=== PATIENT | male | born 1940 | race Caucasian/White ===

== ENCOUNTER 2021-01-12 08:53 | Inpatient (IN) | payer OTHER ==
[2021-01-12] MEDS ORDERED: DIGOXIN 0.25 MG/ML AMP ONE (09:42)
[2021-01-12] MEDS ORDERED: LEVALBUTEROL 1.25 MG/3 ML NEB ONE (09:42)
[2021-01-12] MEDS ORDERED: METHYLPREDNISOLONE 125 MG INJ ONE (09:42)
[2021-01-12] MEDS ORDERED: IPRATROPIUM BROM 0.5MG/2.5ML ONE (09:42)
[2021-01-12] MEDS ORDERED: CEFTRIAXONE 1000 MG/VIAL ONE (09:42)
[2021-01-12] MEDS ORDERED: NA CHLORIDE 0.9% 100 ML ONE (09:42)
[2021-01-12] MEDS ORDERED: FAMOTIDINE 20 MG/2 ML VIAL IV ONE (09:43)
[2021-01-12 09:57] LABS: Arterial Blood Carboxyhemoglob 1.4 % (0-1.5); Blood Gas Oxyhemoglobin 92.4 % (94-97); Blood O2 Saturation 94.6 % (92-98.5)
[2021-01-12 10:15] LABS: Absolute Lymphocytes (CBC) 0.7 K/uL (0.7-4.9); Basophils % 0.5 % (0-1.3); Hematocrit 44.9 % (39.6-49.0); Lymphocytes % 4.4 % (15.3-44.8); MPV 7.5 fL (7.6-11.3)
[2021-01-12 10:22] LABS: Protime INR 1.15
[2021-01-12 10:39] LABS: Albumin 2.9 g/dL (3.4-5.0); Bilirubin Direct 0.4 mg/dL (0-0.2); Bilirubin Total 1.5 mg/dL (0.2-1.0); Magnesium 1.5 mg/dL (1.8-2.4); Potassium 3.8 mmol/L (3.5-5.1); Protein, Total 7.1 g/dL (6.4-8.2); Troponin (Emerg Dept Use Only) 0.02 ng/mL (0.0-0.045)
[2021-01-12] MEDS ORDERED: MAGNESIUM SULFATE 1 gm IVPB 1 GM/100 ML BAG IV ONE (10:44)
--- NOTE | 2021-01-12 10:47 | ER ---
Nurse's Notes [facility] Name: Ubaldo Rivera Age: 80 yrs Sex: Male : 1940 Arrival Date: 01/12/2021 Time: 08:59 Bed 2 Private MD: Diagnosis: Unspecified atrial fibrillation-WITH RVR;Dyspnea;Hypomagnesemia;Morbid (severe) obesity with alveolar hypoventilation;Elevated white blood cell count;UTI/ Urinary tract infection, site not specified Presentation: 01/12 09:03 Chief complaint: EMS states: WOKE UP WITH SOB AND GENERAL WEAKNESS. Coronavirus screen: bp shortness of breath. Ebola Screen: No symptoms or risks identified at this time. Initial Sepsis Screen: Does the patient meet any 2 criteria? HR > 90 bpm. No. Patient's initial sepsis screen is negative. Does the patient have a suspected source of infection? No. Patient's initial sepsis screen is negative. Risk Assessment: Do you want to hurt yourself or someone else? Patient reports no desire to harm self or others. Onset of symptoms was January 12, 2021. Care prior to arrival: IV initiated. 20 GA, hand. 09:03 Method Of Arrival: EMS: [facility] bp 09:03 Acuity: TOÑO 2 bp 09:07 Acuity: TOÑO 2 bp Triage Assessment: 09:15 General: Reports chills for 12-24 hours. General: Appears distressed, uncomfortable, bp ill, obese, Behavior is WOKE UP THIS AM WITH SOB AND GEN WKN. Pain: Denies pain. EENT: No signs and/or symptoms were reported regarding the EENT system. Neuro: Level of Consciousness is awake, alert, obeys commands, Oriented to none. Cardiovascular: Rhythm is atrial fibrillation. Respiratory: Breath sounds with wheezes bilaterally. GI: Abdomen is obese. : No signs and/or symptoms were reported regarding the genitourinary system. Derm: No deficits noted. Musculoskeletal: Reports weakness in GENERALIZED. Historical: - Allergies: 09:13 No Known Allergies; bp - Home Meds: :13 Unable to obtain [Active]; bp - PMHx: 09:13 Hypertensive disorder; Chronic obstructive lung disease; Anxiety; bp - PSHx: 09:13 Coronary artery bypass graft; bp - Immunization history:: Adult Immunizations Last tetanus immunization: Adult Immunizations up to date, . - Social history:: Smoking status: Patient denies any tobacco usage or history of. - Family history:: not pertinent. Screenin:37 Abuse screen: Denies threats or abuse. Denies injuries from another. Nutritional bp screening: No deficits noted. Tuberculosis screening: No symptoms or risk factors identified. Fall Risk None identified. Assessment: 09:15 General: SEE TRIAGE NOTE. bp 11:00 Reassessment: No changes from previously documented assessment. Patient is alert, bp oriented x 3, equal unlabored respirations, skin warm/dry/pink. ADMIT INITIALIZED. 13:00 Reassessment: No changes from previously documented assessment. Patient and/or family bp updated on plan of care and expected duration. Pain level reassessed. 15:00 Reassessment: No changes from previously documented assessment. Patient and/or family bp updated on plan of care and expected duration. Pain level reassessed. ADMIT IN PROCESS. 16:00 Reassessment: PT SEEN SLEEPING WITH SUPPLEMENTAL OXYGEN OFF. PT O2 SAT ON RA 97. PT IN bp NO APPAREANT DISTRESS. WILL CONTINUE CONTINUOUS O2 MONITORING. Vital Signs: 09:03 Pulse Ox 90% on R/A; Weight 149.69 kg; Height 6 ft. 4 in. (193.04 cm); bp 09:33 BP 110 / 61; Pulse 108; Resp 14; Pulse Ox 93% on 2 lpm NC; bp 10:30 BP 117 / 59; Pulse 100; Resp 17; Pulse Ox 94% ; bp 11:30 BP 110 / 67; Pulse 97; Resp 19; Pulse Ox 94% ; bp 12:11 BP 121 / 66; Pulse 97; Resp 17; Pulse Ox 93% on 2 lpm NC; bp 13:38 BP 126 / 64; Pulse 88; Resp 20; Pulse Ox 98% on 2 lpm NC; bp 15:19 BP 135 / 69; Pulse 90; Resp 16; Pulse Ox 94% on 2 lpm NC; bp 16:03 BP 126 / 67; Pulse 82; Resp 17; Pulse Ox 97% on R/A; bp 09:03 Body Mass Index 40.17 (149.69 kg, 193.04 cm) bp ED Course: 08:59 Patient arrived in ED. em1 08:59 Luis Hunt MD is Attending Physician. vicky 09:03 Clifford Ortiz, RN is Primary Nurse. bp 09:07 Triage completed. bp 09:15 Maintain EMS IV. Dressing intact. Good blood return noted. Site clean \T\ dry. Gauge \T\ bp site: 20 GAUGE L HAND. 09:16 Arm band placed on. bp 10:06 Basic Metabolic Panel Sent. bp 10:06 CBC with Diff Sent. bp 10:06 LFT's Sent. bp 10:06 Magnesium Sent. bp 10:06 NT PRO-BNP Sent. bp 10:06 PT-INR Sent. bp 10:06 Troponin (emerg Dept Use Only) Sent. bp 10:07 XRAY Chest (1 view) In Process Unspecified. EDMS 10:42 Saul Aguilera MD is Hospitalizing Provider. vicky 10:42 Hospitalizing Provider role handed off by Saul Aguilera MD vicky 10:42 Shravan Aguilera MD is Hospitalizing Provider. vicky 13:37 Patient has correct armband on for positive identification. Bed in low position. Call bp light in reach. Side rails up X2. Administered Medications: 09:40 Drug: SOLU-Medrol (methylPrednisoLONE) 125 mg Route: IVP; Site: left hand; bp 12:13 Follow up: Response: No adverse reaction bp 09:40 Drug: Xopenex (levalbuterol) 1.25 mg Route: Inhalation; bp 12:13 Follow up: Response: No adverse reaction bp 09:40 Drug: AtroVENT (ipratropium) Aerosol 0.5 mg Route: Inhalation; bp 12:13 Follow up: Response: No adverse reaction bp 09:40 Drug: Pepcid (famotidine) 20 mg Route: IVP; Site: left hand; bp 12:12 Follow up: Response: No adverse reaction bp 09:40 Drug: Digoxin 0.5 mg Route: IVP; Site: left hand; bp 12:12 Follow up: Response: No adverse reaction bp 09:40 Drug: Rocephin (cefTRIAXone) 1 grams Route: IV; Rate: per protocol; Site: left hand; bp 12:12 Follow up: IV Status: Completed infusion; IV Intake: 250ml bp 11:00 Drug: Magnesium Sulfate 1 grams Route: IVPB; Infused Over: 1 hrs; Site: left hand; bp 12:12 Follow up: IV Status: Completed infusion; IV Intake: 250ml bp Intake: 12:12 IV: 250ml; Total: 250ml. bp 12:12 IV: 250ml; Total: 500ml. bp Outcome: 10:46 Decision to Hospitalize by Provider. vicky 23:51 Patient left the ED. lp1 Signatures: Dispatcher [employer] EDLuis Rosenberg MD MD cha Martinez, Eric em1 Gunjan Graham RN RN lp1 Clifford Ortiz RN RN bp Corrections: (The following items were deleted from the chart) 09:21 09:13 PMHx: History of urinary tract infection; bp bp
--- NOTE | 2021-01-12 10:47 | EDPHYS ---
Physician Documentation [facility] Name: Ubaldo Rivera Age: 80 yrs Sex: Male : 1940 Arrival Date: 01/12/2021 Time: 08:59 Bed 2 Private MD: ED Physician Luis Hunt HPI: 01/12 09:20 This 80 yrs old Male presents to ER via EMS with complaints of DYSPNEA, WEAK vicky AND AFIV RVR. 09:20 The patient has shortness of breath at rest, with light activity. Onset: The vicky symptoms/episode began/occurred just prior to arrival. Duration: The symptoms are continuous, and are steadily getting worse. The patient's shortness of breath is aggravated by nothing, is alleviated by rest, sitting up, application of supplemental oxygen. WEAK AT HOME. Associated signs and symptoms: The patient has no apparent associated signs or symptoms. Severity of symptoms: At their worst the symptoms were moderate just prior to arrival, in the emergency department the symptoms have improved mildly. Onset: The symptoms/episode began/occurred. The patient has experienced similar episodes in the past, multiple times. Historical: - Allergies: 09:13 No Known Allergies; bp - Home Meds: 09:13 Unable to obtain [Active]; bp - PMHx: 09:13 Hypertensive disorder; Chronic obstructive lung disease; Anxiety; bp - PSHx: 09:13 Coronary artery bypass graft; bp - Immunization history:: Adult Immunizations Last tetanus immunization: Adult Immunizations up to date, . - Social history:: Smoking status: Patient denies any tobacco usage or history of. - Family history:: not pertinent. ROS: 09:20 Constitutional: Negative for fever, chills, and weight loss, Eyes: Negative for injury, vicky pain, redness, and discharge, ENT: Negative for injury, pain, and discharge, Neck: Negative for injury, pain, and swelling, Back: Negative for injury and pain, : Negative for injury, bleeding, discharge, and swelling, MS/Extremity: Negative for injury and deformity, Skin: Negative for injury, rash, and discoloration, Psych: Negative for depression, anxiety, suicide ideation, homicidal ideation, and hallucinations, Allergy/Immunology: Negative for hives, rash, and allergies, Endocrine: Negative for neck swelling, polydipsia, polyuria, polyphagia, and marked weight changes, Hematologic/Lymphatic: Negative for swollen nodes, abnormal bleeding, and unusual bruising. 09:20 Cardiovascular: Positive for orthopnea, palpitations, Negative for chest pain. 09:20 Respiratory: Positive for shortness of breath, at rest. 09:20 Abdomen/GI: Positive for abdominal distension. Exam: 09:20 Constitutional: This is a well developed, well nourished patient who is awake, alert, vicky and in no acute distress. Head/Face: Normocephalic, atraumatic. Eyes: Pupils equal round and reactive to light, extra-ocular motions intact. Lids and lashes normal. Conjunctiva and sclera are non-icteric and not injected. Cornea within normal limits. Periorbital areas with no swelling, redness, or edema. ENT: Nares patent. No nasal discharge, no septal abnormalities noted. Tympanic membranes are normal and external auditory canals are clear. Oropharynx with no redness, swelling, or masses, exudates, or evidence of obstruction, uvula midline. Mucous membranes moist. Neck: Trachea midline, no thyromegaly or masses palpated, and no cervical lymphadenopathy. Supple, full range of motion without nuchal rigidity, or vertebral point tenderness. No Meningismus. Chest/axilla: Normal chest wall appearance and motion. Nontender with no deformity. No lesions are appreciated. Back: No spinal tenderness. No costovertebral tenderness. Full range of motion. Male : Normal genitalia with no discharge or lesions. Skin: Warm, dry with normal turgor. Normal color with no rashes, no lesions, and no evidence of cellulitis. MS/ Extremity: Pulses equal, no cyanosis. Neurovascular intact. Full, normal range of motion. Neuro: Awake and alert, GCS 15, oriented to person, place, time, and situation. Cranial nerves II-XII grossly intact. Motor strength 5/5 in all extremities. Sensory grossly intact. Cerebellar exam normal. Normal gait. Psych: Awake, alert, with orientation to person, place and time. Behavior, mood, and affect are within normal limits. 09:20 Cardiovascular: Rate: tachycardic, Rhythm: irregularly irregular, Pulses: Pulses are 4+ in bilateral radial, brachial, femoral, popliteal, posterior tibial and and dorsalis pedis arteries.. Heart sounds: normal, Edema: 1+ edema to level of left midcalf and right midcalf, JVD: is not appreciated. 09:20 ECG was reviewed by the Attending Physician. Vital Signs: 09:03 Pulse Ox 90% on R/A; Weight 149.69 kg; Height 6 ft. 4 in. (193.04 cm); bp 09:33 BP 110 / 61; Pulse 108; Resp 14; Pulse Ox 93% on 2 lpm NC; bp 10:30 BP 117 / 59; Pulse 100; Resp 17; Pulse Ox 94% ; bp 11:30 BP 110 / 67; Pulse 97; Resp 19; Pulse Ox 94% ; bp 12:11 BP 121 / 66; Pulse 97; Resp 17; Pulse Ox 93% on 2 lpm NC; bp 13:38 BP 126 / 64; Pulse 88; Resp 20; Pulse Ox 98% on 2 lpm NC; bp 15:19 BP 135 / 69; Pulse 90; Resp 16; Pulse Ox 94% on 2 lpm NC; bp 16:03 BP 126 / 67; Pulse 82; Resp 17; Pulse Ox 97% on R/A; bp 09:03 Body Mass Index 40.17 (149.69 kg, 193.04 cm) bp MDM: 09:00 Patient medically screened. vicky 09:24 Differential diagnosis: Anemia asthma, Bronchitis CHF exacerbation, Chronic Obstructive vicky Pulmonary Disease pneumonia, Pneumothorax pulmonary edema, reactive airway disease, Sepsis. Antibiotic administration: ROCEPHIN. Differential Diagnosis altered mental status, sepsis. The patient's Wells Deep Vein Thrombosis Score was calculated as follows: Heart Rate >100 BPM (1.5 Pts) Total Score: 0-2 Pts- Low Risk. The patient's pulmonary embolism risk score was calculated as follows: the patients heart rate is greater than 100 beats per minute (1.5 Pts) Total Score: 0-2 points. This patient was found to be at low risk for a pulmonary embolism by using the Well's assessment criteria. Immunization status: Pneumococcal vaccine: Influenza vaccine: Data reviewed: vital signs, nurses notes, lab test result(s), EKG, radiologic studies, plain films. Data interpreted: air sampling and monitoring: rate is 112 beats/min, rhythm is regular, Pulse oximetry: on room air is 90 %. Test interpretation: by ED physician or midlevel provider: ECG, plain radiologic studies. Counseling: I had a detailed discussion with the patient and/or guardian regarding: the historical points, exam findings, and any diagnostic results supporting the discharge/admit diagnosis, lab results, radiology results. 01/12 09:20 Order name: Basic Metabolic Panel; Complete Time: 10:40 [facility] 01/12 09:20 Order name: CBC with Diff [facility] 01/12 09:20 Order name: LFT's; Complete Time: 10:40 [facility] 01/12 09:20 Order name: Magnesium; Complete Time: 10:40 [facility] 01/12 09:20 Order name: NT PRO-BNP; Complete Time: 10:40 [facility] 01/12 09:20 Order name: PT-INR; Complete Time: 10:33 [facility] 01/12 09:20 Order name: Troponin (emerg Dept Use Only); Complete Time: 10:40 [facility] 01/12 09:20 Order name: Blood Culture Adult (2) [facility] 01/12 09:20 Order name: Lactate; Complete Time: 10:33 [facility] 01/12 09:20 Order name: SARS-COV-2 RT PCR (Document "Date of Onset" if Symptomatic) [facility] 01/12 09:20 Order name: ABG; Complete Time: 10:33 [facility] 01/12 10:17 Order name: CBC Smear Scan [facility] 01/12 12:22 Order name: Urine Dipstick-Ancillary [facility] 01/12 12:27 Order name: Urine Culture [facility] 01/12 09:20 Order name: XRAY Chest (1 view) [facility] 01/12 09:20 Order name: EKG; Complete Time: 09:21 [facility] 01/12 09:20 Order name: Cardiac monitoring; Complete Time: 09:30 [facility] 01/12 09:20 Order name: EKG - Nurse/Tech; Complete Time: 09:30 [facility] 01/12 09:20 Order name: IV Saline Lock; Complete Time: 10:06 [facility] 01/12 19:15 Order name: Glucose, Ancillary Testing [facility] 01/12 19:41 Order name: T4 Free [facility] 01/12 19:41 Order name: Thyroid Stimulating Hormone [facility] 01/12 20:52 Order name: Glucose, Ancillary Testing [facility] 01/12 09:20 Order name: Labs collected and sent; Complete Time: 10:06 [facility] 01/12 09:20 Order name: O2 Per Protocol; Complete Time: 09:29 [facility] 01/12 09:20 Order name: O2 Sat Monitoring; Complete Time: 09:29 [facility] 01/12 09:20 Order name: Urine Dipstick-Ancillary (obtain specimen); Complete Time: 12:24 vicky 01/12 09:20 Order name: IV Saline Lock - Large Bore; Complete Time: 10:05 vicky EC:20 Rate is 112 beats/min. Rhythm is irregularly irregular. QRS [place] is Normal. SD interval vicky is normal. QRS interval is normal. QT interval is normal. No Q waves. T waves are Normal. No ST changes noted. Clinical impression: Atrial Fibrillation. Interpreted by me. Reviewed by me. Administered Medications: 09:40 Drug: SOLU-Medrol (methylPrednisoLONE) 125 mg Route: IVP; Site: left hand; bp 12:13 Follow up: Response: No adverse reaction bp 09:40 Drug: Xopenex (levalbuterol) 1.25 mg Route: Inhalation; bp 12:13 Follow up: Response: No adverse reaction bp 09:40 Drug: AtroVENT (ipratropium) Aerosol 0.5 mg Route: Inhalation; bp 12:13 Follow up: Response: No adverse reaction bp 09:40 Drug: Pepcid (famotidine) 20 mg Route: IVP; Site: left hand; bp 12:12 Follow up: Response: No adverse reaction bp 09:40 Drug: Digoxin 0.5 mg Route: IVP; Site: left hand; bp 12:12 Follow up: Response: No adverse reaction bp 09:40 Drug: Rocephin (cefTRIAXone) 1 grams Route: IV; Rate: per protocol; Site: left hand; bp 12:12 Follow up: IV Status: Completed infusion; IV Intake: 250ml bp 11:00 Drug: Magnesium Sulfate 1 grams Route: IVPB; Infused Over: 1 hrs; Site: left hand; bp 12:12 Follow up: IV Status: Completed infusion; IV Intake: 250ml bp Disposition Summary: 01/12/21 10:46 Hospitalization Ordered Hospitalization Status: Observation vicky Provider: Shravan Aguilera cha Location: Telemetry/MedSurg (Inpatient) vicky Condition: Fair vicky Problem: new vicky Symptoms: have improved vicky Bed/Room Type: Standard vicky Room Assignment: 205(01/12/21 22:39) cg Diagnosis - Unspecified atrial fibrillation - WITH RVR vicky - Dyspnea vicky - Hypomagnesemia vicky - Morbid (severe) obesity with alveolar hypoventilation vicky - Elevated white blood cell count vicky - UTI/ Urinary tract infection, site not specified vicky Forms: - Medication Reconciliation Form vicky - SBAR form vicky Signatures: Dispatcher [employer] Luis Elizalde MD MD cha Garcia, Cindy, RN RN Clifford Carbone RN RN bp Corrections: (The following items were deleted from the chart) 09:21 09:13 PMHx: History of urinary tract infection; bp bp 22:39 10:46 vicky
--- NOTE | 2021-01-12 10:49 | RAD REPORT ---
EXAM DESCRIPTION: RAD - Chest Single View - 01/12/2021 10:07 am CLINICAL HISTORY: DYSPNEA COMPARISON: <Comparisons> FINDINGS: Lines: None. Lungs: No evidence of edema or pneumonia. Pleural: No significant pleural effusions or pneumothorax. Cardiac: Mild cardiomegaly . Bones: No acute fractures. Other: IMPRESSION: No acute cardiopulmonary disease.
[2021-01-12 10:52] LABS: Blood Morphology Comment NOT SEEN (NOT SEEN); Platelet Estimate ADEQ; White Blood Cell Scan OK (OK)
[2021-01-12 12:23] LABS: Urine Blood 3+ (Negative); Urine Glucose Negative (Negative); Urine Protein 2+ (Negative); Urine Specific Gravity 1.015 (1.005-1.030)
--- NOTE | 2021-01-12 12:39 | P.HP ---
Certification for Inpatient Patient admitted to: Inpatient With expected LOS: >2 Midnights Practitioner: I am a practitioner with admitting privileges, knowledge of patient current condition, hospital course, and medical plan of care. Services: Services provided to patient in accordance with Admission requirements found in Title 42 Section 412.3 of the Code of Federal Regulations Patient History Date of Service: 01/12/21 Primary Care Provider: out of [facility] Reason for admission: UTI, A. fib with RVR History of Present Illness: 80-year-old A. fib on Eliquis, insulin-dependent DM 2 with neuropathy, HTN, COPD (not on inhalers), GERD, PTSD/anxiety. Patient presents with his caregiver/neighbor. He is from [place] and in town with his neighbor who is visiting her family for the holidays. Report patient woke up this morning with shortness of breath, lethargy, and generalized weakness. Neighbor states he was in his usual state of health up until yesterday, when he reported some slight burning when he was urinating last night. Denies fever/chills at home. Reports he has been taking his medications as prescribed without missing a dose. He did receive his booster vaccination for COVID 1 week ago. In the ED, he was noted to be in A. fib with RVR to the 110-120s, hypoxic to 88- 90% on room air, wheezing and tachypnea neck. Work-up revealed rather clear chest x-ray, mild leukocytosis, and UA suggestive for UTI. Patient's heart rate improved after given 0.5 mg digoxin. He reports feeling better but still somewhat lethargic and weak. He did take Ativan earlier today, but neighbor states he is still more lethargic than usual even after Ativan. - Past Medical/Surgical History -: A. fib on Eliquis -: HTN -: GERD -: Insulin-dependent DM 2 -: Anxiety/PTSD -: Chronic COPD -: Cholecystectomy Psychosocial/ Personal History: Lives home alone, neighbor who lives 2 miles away will check on patient occasionally - Family History Family History: Reviewed- Non-Contributory - Social History Smoking Status: Former smoker (Quit 25 years ago) Alcohol use: No Place of Residence: Home Review of Systems 10-point ROS is otherwise unremarkable Physical Examination - Physical Exam General: Oriented x3, Mild distress (Difficult to keep his eyes open) HEENT: PERRLA, EOMI, Sclerae nonicteric Neck: No LAD Respiratory: Diminished (At bases bilaterally), Expiratory wheezes (Bilaterally) Cardiovascular: Edema (1+ pitting bilaterally), Irregular heart rate/rhythm Gastrointestinal: Soft and benign, Non-distended, No tenderness Musculoskeletal: No erythema, No tenderness Integumentary: No rashes, No significant lesion Neurological: Normal speech, Normal strength at 5/5 x4 extr, Normal affect - Studies Laboratory Data (last 24 hrs) 01/12/21 10:00: PT 13.2 H, INR 1.15 01/12/21 10:00: WBC 15.30 H, Hgb 14.9, Hct 44.9, Plt Count 231 01/12/21 10:00: Sodium 138, Potassium 3.8, BUN 20 H, Creatinine 1.32 H, Glucose 170 H, Magnesium 1.5 L, Total Bilirubin 1.5 H, AST 49 H, ALT 36, Alkaline Phosphatase 182 H Assessment and Plan - Advance Directives Does patient have a Living Will: No Does patient have a Durable POA for Healthcare: No Physician Review Additional Text: Problem list Acute hypoxemic respiratory failure secondary to acute on chronic COPD exacerbation Atrial fibrillation with RVR, on Eliquis Urinary tract infection DM2, insulin-dependent HTN GERD PTSD/anxiety Mild hypoxia, suspect COPD exacerbation, CXR rather clear, lungs with diffuse expiratory wheeze on exam, has been off medications/inhalers for a long time We will treat with p.o. prednisone, nebulizers May be having a component of a mild CHF exacerbation, reports no chronic history of CHF, but did have one episode after a spider bite 2 years ago where he had issues with his "heart and kidneys", but has "been normal since then" Patient with symptoms and UA suggestive of UTI, continue Rocephin, received 1 dose in the ED. Urine is dark, patient with some decreased p.o. intake, will give gentle IV fluids, careful not to worsen volume status. Accu-Cheks, insulin sliding scale, need to confirm patient's home insulin dose, states he takes Basaglar twice a day and sliding scale Confirm patient's home medications and restart as appropriate Patient does not appear in severe sepsis Continue home Eliquis, confirm home metoprolol dosing and can restart Monitor vitals Physical therapy consulted VTE: Eliquis Code: DNR Dispo: Anticipate DC home in 1-2 days Time Spent Managing Pts Care (In Minutes): 60
[2021-01-12] MEDS ORDERED: ACETAMINOPHEN 500 MG TAB PO PRN (18:49)
[2021-01-12] MEDS ORDERED: NA CHLORIDE 0.9% 1,000 ML IV SCH (18:49)
[2021-01-12] MEDS: INSULIN -REGULAR HUMAN 50 UNIT/0.5 ML ML SQ SCH ×2 (18:49→21:00)
[2021-01-12] MEDS ORDERED: ALBUTEROL 2.5 MG/3 ML NEB SOL NEB PRN (19:04)
[2021-01-12] MEDS ORDERED: INSULIN -REGULAR HUMAN 50 UNIT/0.5 ML ML ONE (19:08)
[2021-01-12 19:40] LABS: Thyroid Stimulating Hormone 2.64 uIU/mL (0.360-3.740)
[2021-01-12] MEDS ORDERED: APIXABAN 5 MG TABLET ONE (19:53)
[2021-01-12] MEDS ORDERED: predniSONE 20 MG TAB ONE (19:53)
[2021-01-12] MEDS: predniSONE 20 MG TAB PO SCH (21:00)
[2021-01-12] MEDS: APIXABAN 5 MG TABLET PO SCH (21:00)
[2021-01-13] MEDS ORDERED: MELATONIN 5 MG TABLET PO PRN (02:18)
[2021-01-13 03:29] VITALS: BMI 40.6
[2021-01-13 05:32] LABS: Absolute Lymphocytes (CBC) 0.7 K/uL (0.7-4.9); Basophils % 0.1 % (0-1.3); Hematocrit 42.8 % (39.6-49.0); Lymphocytes % 4.5 % (15.3-44.8); MPV 7.5 fL (7.6-11.3)
[2021-01-13 05:52] LABS: Albumin 2.6 g/dL (3.4-5.0); Bilirubin Total 1.2 mg/dL (0.2-1.0); Magnesium 1.9 mg/dL (1.8-2.4); Potassium 4.2 mmol/L (3.5-5.1); Protein, Total 6.5 g/dL (6.4-8.2)
--- NOTE | 2021-01-13 06:24 | P.PN ---
Date of Service: 01/13/21 Subjective: Feels he is doing a little bit better, breathing more comfortably, on room air as of a few minutes prior to me examining him Denies any dysuria this morning, but did have some last night, generalized weakness/fatigue but overall feeling better ROS: 10 point ROS as noted above, otherwise negative Physical exam GEN: Alert, orientedx3, NAD HEENT: Normal conjunctiva, sclera anicteric CV: Irregularly irregular rhythm, 1+ edema bilaterally Pulm: Nonlabored respiration on room air, expiratory wheeze ABD: Soft, nontender, nondistended MSK: No joint tenderness Integumentary: No rashes Neuro: Normal speech, normal affect Problem List Acute hypoxemic respiratory failure secondary to acute on chronic COPD exacerbation Atrial fibrillation with RVR, on Eliquis Urinary tract infection DM2, insulin-dependent HTN GERD PTSD/anxiety Hypoxia improved, no longer wheezing is much, breathing more comfortably Continue Dulera, nebs, prednisone, pulmonology consulted May be having a component of a mild CHF exacerbation, reports no chronic history of CHF, but did have one episode after a spider bite 2 years ago where he had issues with his "heart and kidneys", but has "been normal since then" Patient with symptoms and UA suggestive of UTI, continue Rocephin, received 1 dose in the ED. Urine is dark, patient with some decreased p.o. intake, will give gentle IV fluids, careful not to worsen volume status. Accu-Cheks, insulin sliding scale, need to confirm patient's home insulin dose, states he takes Basaglar twice a day and sliding scale Confirm patient's home medications and restart as appropriate Patient does not appear in severe sepsis Continue home Eliquis, restart metoprolol, confirm home dosage, may need to titrate up with his lower blood pressures Monitor vitals Physical therapy consulted Urine culture pending If continues to improve, anticipate discharge tomorrow. Discussed he will need close follow-up with his PCP. He is from out of state ([place] VTE: Grisel Code: DNR Dispo: Anticipate DC home in ~24hrs
[2021-01-13] MEDS: METOPROLOL XL 100 MG TAB PO SCH (06:45)
[2021-01-13] MEDS ORDERED: CEFTRIAXONE 1000 MG/VIAL ONE (08:15)
[2021-01-13] MEDS ORDERED: NA CHLORIDE 0.9% 100 ML ONE (08:16)
[2021-01-13] MEDS: ONDANSETRON 4 MG/2 ML VIAL IV PRN ×2 (08:38→14:45)
[2021-01-13] MEDS: APIXABAN 5 MG TABLET PO SCH ×2 (08:39→20:18)
[2021-01-13] MEDS: INSULIN GLARGINE 100 UNIT/ML SQ SCH ×2 (08:40→21:24)
[2021-01-13] MEDS: INSULIN -REGULAR HUMAN 50 UNIT/0.5 ML ML SQ SCH ×4 (08:40→21:23)
[2021-01-13] MEDS: CEFTRIAXONE 1,000 MG in NA CHLORIDE 0.9% 50 ML IVPB SCH (08:41)
[2021-01-13] MEDS: predniSONE 20 MG TAB PO SCH ×2 (08:42→20:19)
[2021-01-13] MEDS ORDERED: APIXABAN 5 MG TABLET PO SCH (09:00)
[2021-01-13] MEDS: DULERA 100/5 (MOMETASONE/FORMOTEROL) INHALER IH SCH ×2 (09:01→20:19)
[2021-01-13] MEDS ORDERED: LORAZEPAM 0.5 MG TABLET PO PRN (19:34)
[2021-01-13] MEDS ORDERED: DULOXETINE 30 MG CAP PO SCH (21:00)
[2021-01-13] MEDS ORDERED: ROSUVASTATIN 10 MG TAB PO SCH (21:00)
[2021-01-13] MEDS ORDERED: TAMSULOSIN 0.4 MG SR CAP PO SCH (21:00)
[2021-01-13] MEDS ORDERED: PREGABALIN 150 MG CAP PO SCH (21:00)
[2021-01-14 01:50] VITALS: O2SAT 93
[2021-01-14 05:35] LABS: Absolute Lymphocytes (CBC) 0.9 K/uL (0.7-4.9); Basophils % 0.2 % (0-1.3); Hematocrit 43.4 % (39.6-49.0); Lymphocytes % 4.8 % (15.3-44.8); MPV 7.7 fL (7.6-11.3); RBC Red Blood Cell Count 4.74 M/uL (4.33-5.43)
[2021-01-14] MEDS: METOPROLOL XL 100 MG TAB PO SCH (05:49)
[2021-01-14 05:51] LABS: Albumin 2.6 g/dL (3.4-5.0); Bilirubin Total 0.8 mg/dL (0.2-1.0); Magnesium 2.2 mg/dL (1.8-2.4); Potassium 4.7 mmol/L (3.5-5.1); Protein, Total 6.6 g/dL (6.4-8.2)
[2021-01-14] MEDS ORDERED: METOPROLOL XL 100 MG TAB PO ONE (06:05)
[2021-01-14] MEDS ORDERED: CEFTRIAXONE 1000 MG/VIAL ONE (08:03)
[2021-01-14] MEDS ORDERED: NA CHLORIDE 0.9% 50 ML ONE (08:04)
[2021-01-14] MEDS: CEFTRIAXONE 1,000 MG in NA CHLORIDE 0.9% 50 ML IVPB SCH (08:10)
[2021-01-14] MEDS: INSULIN GLARGINE 100 UNIT/ML SQ SCH (08:11)
[2021-01-14] MEDS: predniSONE 20 MG TAB PO SCH (08:11)
[2021-01-14] MEDS: APIXABAN 5 MG TABLET PO SCH (08:11)
[2021-01-14] MEDS: INSULIN -REGULAR HUMAN 50 UNIT/0.5 ML ML SQ SCH (08:12)
[2021-01-14] MEDS: DULERA 100/5 (MOMETASONE/FORMOTEROL) INHALER IH SCH (08:12)
--- NOTE | 2021-01-14 08:19 | P.DS ---
Admission Date: 01/12/21 Discharge Date: 01/14/21 Primary Care Provider: out of [facility] Disposition: ROUTINE DISCHARGE Discharge Condition: GOOD Reason for Admission: UTI, A. fib with RVR Brief History of Present Illness: 80-year-old A. fib on Eliquis, insulin-dependent DM 2 with neuropathy, HTN, COPD (not on inhalers), GERD, PTSD/anxiety. Patient presents with his caregiver/neighbor. He is from [place] and in town with his neighbor who is visiting her family for the holidays. Report patient woke up this morning with shortness of breath, lethargy, and generalized weakness. Neighbor states he was in his usual state of health up until yesterday, when he reported some slight burning when he was urinating last night. Denies fever/chills at home. Reports he has been taking his medications as prescribed without missing a dose. He did receive his booster vaccination for COVID 1 week ago. In the ED, he was noted to be in A. fib with RVR to the 110-120s, hypoxic to 88- 90% on room air, wheezing and tachypnea neck. Work-up revealed rather clear chest x-ray, mild leukocytosis, and UA suggestive for UTI. Patient's heart rate improved after given 0.5 mg digoxin. He reports feeling better but still somewhat lethargic and weak. He did take Ativan earlier today, but neighbor states he is still more lethargic than usual even after Ativan. Vital Signs/Physical Exam: Temp Pulse Resp BP Pulse Ox 97.1 F 88 19 145/70 H 90 L 01/14/21 04:00 01/14/21 06:45 01/14/21 04:00 01/14/21 06:45 01/14/21 04:00 Laboratory Data at Discharge: WBC 18.70 K/uL (4.3-10.9) H 01/14/21 05:10 Hgb 14.2 g/dL (13.6-17.9) 01/14/21 05:10 Hct 43.4 % (39.6-49.0) 01/14/21 05:10 Plt Count 234 K/uL (152-406) 01/14/21 05:10 PT 13.2 SECONDS (9.5-12.5) H 01/12/21 10:00 INR 1.15 01/12/21 10:00 Sodium 139 mmol/L (136-145) 01/14/21 05:10 Potassium 4.7 mmol/L (3.5-5.1) 01/14/21 05:10 BUN 28 mg/dL (7-18) H 01/14/21 05:10 Creatinine 1.23 mg/dL (0.55-1.3) 01/14/21 05:10 Glucose 196 mg/dL (74-106) H 01/14/21 05:10 Magnesium 2.2 mg/dL (1.8-2.4) 01/14/21 05:10 Total Bilirubin 0.8 mg/dL (0.2-1.0) 01/14/21 05:10 AST 47 U/L (15-37) H 01/14/21 05:10 ALT 38 U/L (12-78) 01/14/21 05:10 Alkaline Phosphatase 138 U/L (45-117) H 01/14/21 05:10 Home Medications: Allopurinol 1 tab PO BID 01/13/21 Apixaban [Eliquis] 1 tab PO BID 01/13/21 Duloxetine HCl [Cymbalta] 1 cap PO BEDTIME 01/13/21 Insulin Lispro [Humalog] 1 unit SQ SEECOM 01/13/21 Linagliptin [Tradjenta] 1 tab PO DAILY 01/13/21 Metoprolol Succinate [Toprol Xl] 1 tab PO DAILY 01/13/21 Pregabalin [Lyrica] 1 cap PO BEDTIME 01/13/21 Pregabalin [Lyrica] 1 cap PO DAILY 01/13/21 Rabeprazole Sodium [Aciphex] 30 mg PO BID 01/13/21 Rosuvastatin Calcium [Crestor] 1 tab PO BEDTIME 01/13/21 Tamsulosin HCl [Flomax] 1 cap PO BEDTIME 01/13/21 Torsemide [Demadex*] 1 tab PO DAILY 01/13/21 Albuterol Sulfate [Albuterol Sulfate Hfa] 8.5 gm IH Q4H PRN 30 Days #1 hfa.aer.ad 01/14/21 Cefpodoxime Proxetil [Vantin] 200 mg PO BID 7 Days #14 tablet 01/14/21 Mometasone/Formoterol [Dulera 100 Mcg/5 Mcg Inhaler] 2 puff IH BID inhaler 01/14/21 predniSONE [Prednisone*] 20 mg PO BID 4 Days #8 tab 01/14/21 New Medications: Albuterol Sulfate [Albuterol Sulfate Hfa] 8.5 gm IH Q4H PRN 30 Days #1 hfa.aer.ad PRN Reason: Wheezing predniSONE [Prednisone*] 20 mg PO BID 4 Days #8 tab Cefpodoxime Proxetil [Vantin] 200 mg PO BID 7 Days #14 tablet Physician Discharge Instructions: You were found to have a COPD exacerbation and UTI. You improved with steroids, nebulizers, and antibiotics. You are discharged home to continue prednisone, inhalers, and cefpodoxime (antibiotic). Please follow up with your PCP in 3-5 days. Resume your other home medications as previously prescribed. If prescriptions are too costly, recommend trying the free online coupon - GoodRx card. If still too expensive, please call the hospital to the 2nd floor nursing station and the nurses will be able to pass the message. Followup: NONE,NONE [Primary Care Provider] -
[2021-01-14 09:06] VITALS: BP 146/82; TEMP 97.6
== END 2021-01-14 10:15 | disposition home or self-care (01) | DRG 190 ==
LOC: ER 08:53 → ERHOLD 12:29 → 2ND 23:22
PROVIDERS: ADMIT Hospitalist; ATTEND Hospitalist
DX: J44.1 Chronic obstructive pulmonary disease with (acute) exacerbation (principal); J96.01 Acute respiratory failure with hypoxia; N39.0 Urinary tract infection, site not specified; E66.2 Morbid (severe) obesity with alveolar hypoventilation; Z68.41 Body mass index [BMI] 40.0-44.9, adult; E83.42 Hypomagnesemia; D72.829 Elevated white blood cell count, unspecified; I48.91 Unspecified atrial fibrillation; I10 Essential (primary) hypertension; E11.40 Type 2 diabetes mellitus with diabetic neuropathy, unspecified; K21.9 Gastro-esophageal reflux disease without esophagitis; F43.10 Post-traumatic stress disorder, unspecified; F41.9 Anxiety disorder, unspecified; Z60.2 Problems related to living alone; Z87.891 Personal history of nicotine dependence; Z79.01 Long term (current) use of anticoagulants; Z95.1 Presence of aortocoronary bypass graft; Z79.4 Long term (current) use of insulin; Z66 Do not resuscitate; Z79.52 Long term (current) use of systemic steroids; Z79.899 Other long term (current) drug therapy; Z20.822 Contact with and (suspected) exposure to COVID-19
CPT/HCPCS: 36415; 71045; 80048; 80053; 80076; 81003; 82805; 82947; 83036; 83605; 83735; 83880; 84439; 84443; 84484; 85025; 85610; 87040; 87086; 87088; 93005; 96365; 96366; 96375; 97116; 97161; 97530; 99285; J1160; J2405; J2930; J3475; J7030; J7512; J7606; U0003